=== PATIENT | female | born 1960 | race Caucasian/White ===

== ENCOUNTER 2017-01-28 20:50 | Emergency (ER) | payer OTHER ==
[~2017-01-28] VITALS: Ht 162.6 cm; Wt 56.8 kg
[2017-01-28 20:53] VITALS: BP 182/92; PULSE 87; RESP 18; O2SAT 96
--- NOTE | 2017-01-28 21:46 | ED.REPORT ---
HPI-General Illness Date of Service Jan 28, 2017 ED Provider: Sekou Ríos MD The pt is a 56 y/o female w/ a hx of IVDA and vasculitis coming into the ED via DOC officer seeking clearance for incarceration, due to recent hospital admission for left foot vasculitis. Patient reports ongoing left foot pain. She was released from [facility] this morning after spending 4-5 days being treated for vasculitis. Patient denies being treated for osteomyelitis or undergoing surgery but she did receive IV antibiotics.She is currently taking cephalexin, baby aspirin, and gabapentin. She reports no other health problems but is concerned with how she is going to take care of her injuries while she is in prison. The patient has been caring for her wounds herself at home, soaking her foot in a tub. The patient is to be transported to [facility], a [facility]. She has not had a fever or chills. Nursing Notes Stated Complaint: FIT FOR [facility] Chief Complaint: Extremity Trauma Nursing Notes Reviewed: Yes Allergies: Coded Allergies: No Known Allergies (Verified Allergy, Unknown, 01/28/17) No Active Prescriptions or Reported Meds General Time Seen by MD: 21:43 Chief Complaint Other (Seeking medical clearance ) Hx Obtained From: Patient Arrived By: Police Sudden in Onset?: No Onset Occurred: 5 days ago Symptom Duration: Since onset Recent Healthcare: Recent doctor visit, Recent hospitalization Similar Sx Previous: Yes Past Medical History Past Medical History Notes: Recent discharged from [facility] for left foot vasculitis, discharged on Keflex Past Medical History Hx of low back pain H/o vasculitis, left foot Reports: IV Drug use Past Surgical History Tubal ligation Smoking History Unknown if Ever Smoker Social History Drug Use: IV drugs, Meth Other Social History: Local resident Ambulatory Status Independent Review of Systems Full Review of Systems Constitutional: Denies: Chills, Fever Musculoskeletal: Reports: Extremity pain (L foot ), Denies: Extremity swelling Complete sys rev & neg: except as marked. Physical Exam Vital Signs Vital Signs Date Time Temp Pulse Resp B/P Pulse Ox O2 Delivery O2 Flow Rate FiO2 01/28/17 22:17 73 20 155/84 98 Room Air 01/28/17 20:53 36.3 87 18 182/92 96 Room Air Initial VS: Reviewed Head / Eyes: Atraumatic, Normocephalic, PERRL ENT: Mucous membranes moist, Conjunctiva normal, No scleral icterus Neck: Supple, Non-tender, Full range of motion Respiratory: Breath sounds normal, Clear to auscultation, No respiratory distress Cardiovascular: Regular rate & rhythm, Heart sounds normal, Intact distal pulses Neurologic: Alert, Oriented, Nonfocal Psychiatric: Mood/affect normal, Behavior normal, Normal thought content General/Constitutional: Awake, Alert Head / Eyes: Atraumatic, Normocephalic Neck: Atraumatic, Supple, Full range of motion Two superficial ulcers on L foot which are currently dressed Skin: Warm, Dry Multiple sores over most of her body Re-Eval/Medical Decision Med Decision/Clinical Course 56-year-old female brought to [facility] by the DOC collection team for medical clearance for transport back to [facility], a DOC facility in [place]. She was brought here for medical clearance because she has a large bandage on her foot and she has high blood pressure. She was initially hypertensive but repeat blood pressures after she calmed down were elevated but not dangerously so. She has a history of vasculitis and has some open ulcerations on her foot. She has been doing daily dressing changes with these. She is on Keflex and gabapentin. Her medical situation was discussed with the intake nurse at [facility] who agreed that she could be cared for there and accepted her in transfer. They will make arrangements for her medications, her dressing changes, and her personal hygiene. They will also contact [facility] where she was recently hospitalized for records. Source of Hx: Old records Time of Eval: 22:56 Patient Status: Condition resolved Re-Evaluation/Progress Note: Pt rechecked. Informed pt of plan for treatment. Pt understands and agrees with plan for treatment. F/U instructions and RTER warnings given. All questions addressed. Consultation : Note: Consulted [facility], discussed pt's case w/ medical device assembler, who accepts the pt. Counseled Regarding: Diagnosis, Need for follow-up, When/why to return to ED Discharge & Departure Primary Impression: Medical clearance for incarceration Additional Impression: Skin ulcer of left foot Non-pressure ulcer stage: with fat layer exposed Qualified Code: L97.522 - Non-pressure chronic ulcer of other part of left foot with fat layer exposed Disposition: Home Discharge Condition All VS Reviewed: Yes Condition: Stable Additional Instructions: She is fit for incarceration per our discussion. Daily wet-to-dry dressing changes, contact [facility] for their recommendations for dressing changes and follow-up. Keflex 500 mg 4 times a day and gabapentin 100 mg 3 times a day are her outpatient medications, and she does not have these with her. She will also likely withdraw from opiates. Referrals: Be Torres MD (PCP) Scribe Attestation Portions of this note were transcribed by Anmol Arizmendi and Ryanne Avina. I, Dr. Ríos personally performed the history, physical exam and medical decision- making; I reviewed and confirmed the accuracy of the information in the transcribed note. Signed by: Anmol Arizmenid and Ryanne Avina, Scribes, 01/28/17 and 2334. copies to: Be Torres MD, Howard L MD Jan 28, 2017 21:46 Anmol Arizmendi Jan 28, 2017 21:56 Ryanne Avina Jan 28, 2017 23:08
[2017-01-28 22:17] VITALS: BP 155/84; PULSE 73; RESP 20; O2SAT 98
== END 2017-01-28 22:18 | disposition home or self-care (01) ==
LOC: SED 20:50
DX: L97.522 Non-pressure chronic ulcer of other part of left foot with fat layer exposed (principal); Z02.89 Encounter for other administrative examinations

== ENCOUNTER 2017-04-12 11:54 | Emergency (ER) | payer OTHER ==
[~2017-04-12] VITALS: Ht 162.6 cm; Wt 56.8 kg
[2017-04-12 12:02] VITALS: BP 147/89; PULSE 90; RESP 18; O2SAT 99
--- NOTE | 2017-04-12 12:55 | ED.REPORT ---
HPI-Extremity Problem Lower Date of Service Apr 12, 2017 ED Provider: Oumar Lopez MD Nursing Notes Stated Complaint: LEFT FOOT Chief Complaint: Extremity Trauma Nursing Notes Reviewed: Yes Allergies: Coded Allergies: No Known Allergies (Verified Allergy, Unknown, 04/12/17) No Active Prescriptions or Reported Meds General Time Seen by MD: 12:54 Chief Complaint Foot injury left Hx Obtained From: Patient Arrived By: Walk-in Onset Occurred: More than a week ago... Symptom Duration: Since onset Location: : Foot left Quality: Painful Severity: Current: Moderate Severity: Maximum: Moderate Recent Healthcare: No recent hospitalization, Recent doctor visit Similar Sx Previous: Yes Past Medical History Past Medical History Hx of low back pain H/o vasculitis, left foot Reports: IV Drug use Past Surgical History Tubal ligation Family History Noncontributory Smoking History Unknown if Ever Smoker Social History Drug Use: IV drugs, Meth Other Social History: Local resident Ambulatory Status Independent Review of Systems Musculoskeletal: Reports: Extremity pain, Extremity swelling Complete sys rev & neg: except as marked. Physical Exam Initial Vital Signs Vital Signs (First) Date Time Temp Pulse Resp B/P Pulse Ox O2 Delivery O2 Flow Rate FiO2 04/12/17 12:02 37.0 90 18 147/89 99 Room Air Initial VS: Reviewed Re-Eval/Medical Decision Source of Hx: Old records Counseled Regarding: Diagnosis, Need for follow-up, When/why to return to ED Discharge & Departure Departure Notes PT LEFT WITHOUT BEING SEEN Impression: Primary Impression: Left foot pain Disposition: AGAINST MEDICAL ADVICE (LWOBS) Discharge Condition All VS Reviewed: Yes Condition: Stable Referrals: Be Torres MD (PCP) Scribe Attestation Portions of this note were transcribed by Jumana Batista. I, Dr. Lopez personally performed the history, physical exam and medical decision-making; I reviewed and confirmed the accuracy of the information in the transcribed note. Signed by: Deborah Menjivar, 04/12/2017 at 1400. copies to: Be Torres MD, Beck O MD Apr 12, 2017 12:54 Jumana Batista Apr 12, 2017 13:16
== END 2017-04-12 13:26 | disposition left against medical advice (07) ==
LOC: SED 11:54
DX: M79.672 Pain in left foot (principal); Z53.21 Procedure and treatment not carried out due to patient leaving prior to being seen by health care provider

== ENCOUNTER 2017-04-13 14:27 | Emergency (ER) | payer OTHER ==
[~2017-04-13] VITALS: Ht 162.6 cm; Wt 56.0 kg
[2017-04-13 14:36] VITALS: BP 137/89; PULSE 90; RESP 18; O2SAT 98
--- NOTE | 2017-04-13 15:05 | ED.REPORT ---
HPI-Extremity Problem Lower Date of Service Apr 13, 2017 ED Provider: History of Present Illness: sores are leaking fluid on left lower leg, al is primary care [facility] in [place]. taking it easy yesterday. released from hospital [facility] in [place] for leg about 1 month ago. appointment with al is 04/18/2017 at 9 am Nursing Notes Stated Complaint: LEFT FOOT LEAKING FLUID Chief Complaint: General Complaint Nursing Notes Reviewed: Yes Allergies: Coded Allergies: No Known Allergies (Verified Allergy, Unknown, 04/12/17) No Active Prescriptions or Reported Meds General Time Seen by MD: 15:04 Chief Complaint Leg injury left Hx Obtained From: Patient Onset Occurred: More than a week ago... 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 04/13/2017 Alcohol Use: Denies alcohol use Drug Use: IV drugs, Meth, Other (heroin) Other Social History: Local resident Occupation lives with brother, no work or school Ambulatory Status Independent Review of Systems Basic Review of Systems Eyes: Vision NL, No discharge : No dysuria, No frequency Psychiatric: Normal thought content Physical Exam Initial Vital Signs Vital Signs (First) Date Time Temp Pulse Resp B/P Pulse Ox O2 Delivery O2 Flow Rate FiO2 04/13/17 14:36 36.6 90 18 137/89 98 Room Air Initial VS: Reviewed, Vital signs normal General/Constitutional: Well-developed, Well-nourished Back: No CVA tenderness Psychiatric: Mood/affect normal, Behavior normal, Normal thought content left lower leg with 1 small sore on leg and 1 on foot. No active drainage at this time. Left foot has restriction in movement. US is negative for any clot formation . Blood flow to leg intact. General/Constitutional: Awake, Alert, No acute distress, Well appearing, Well developed, Well hydrated Interpretation & Diagnostics Interpretation & Diagnostics: verbal report no dvt, arterial blood flow intact Lab Results Interpretation Result Diagram: 04/13/17 1606 04/13/17 1606 Test 7/12/17 16:06 White Blood Count 6.2th/mm3 (3.8-10.1) Red Blood Count 4.38mil/mm3 (3.90-5.20) Hemoglobin 12.6g/dL (12.0-15.6) Hematocrit 38.5% (35.0-46.0) Mean Corpuscular Volume 87.9fL (81-100) Mean Corpuscular Hemoglobin 28.8pg (27.0-35.0) Mean Corpuscular Hemoglobin Concent 32.7% (32.0-37.0) Red Cell Distribution Width 15.1% (12.3-15.4) Platelet Count 215bil/L (150-400) Neutrophils (%) (Auto) 43.6% (40-74) Lymphocytes (%) (Auto) 42.3% (14-46) Monocytes (%) (Auto) 9.6% (4-12) Eosinophils (%) (Auto) 3.5% (0-5) Basophils (%) (Auto) 0.8% (0-3) Sodium Level 135mEq/L (134-144) Potassium Level 4.1mEq/L (3.5-5.2) Chloride Level 100mEq/L (97-108) Carbon Dioxide Level 22mmol/L (18-29) Blood Urea Nitrogen 13mg/dL (6-24) Creatinine 0.51mg/dL (0.57-1.00) Estimat Glomerular Filtration Rate 179mL/min (>59) Glucose Level 101mg/dL (60-99) Calcium Level 9.6mg/dL (8.5-10.1) Total Bilirubin 0.4mg/dL (0.0-1.2) Aspartate Amino Transf (AST/SGOT) 154U/L (0-50) Alanine Aminotransferase (ALT/SGPT) 96U/L (0-32) Alkaline Phosphatase 75U/L (25-150) Pro-B-Type Natriuretic Peptide 308.3pg/mL (0-287) Total Protein 7.8g/dL (6.4-8.4) Albumin 3.6g/dL (3.4-5.0) X-Ray Interpretation Xray Interpretation: PROCEDURE: X-RAY LEFT FOOT COMPLETE, MINIMUM THREE VIEWS ([id number]) INDICATIONS: pain swelling TECHNIQUE: 3 views of the foot were acquired. COMPARISON: None. FINDINGS: Bones: No fractures or dislocations. No suspicious bony lesions. Soft tissues: No tibiotalar joint effusion. Achilles tendon appears normal. IMPRESSION: No acute fracture. No osseous lesion. If symptoms and/or clinical suspicion for pathology persist, further assessment with repeat, or advanced imaging (e.g., CT, MRI, or bone scan) may be helpful for further assessment. Dictated by: Amber Padilla M.D. on 04/13/2017 at 15:35 Approved by: Amber Padilla M.D. on 04/13/2017 at 15:36 Re-Eval/Medical Decision Med Decision/Clinical Course 56 year old female presents for evualation of fluid leaking out of her left leg. Patient states the leg was more swollen yesterday. X-ray of the foot is normal. Verbal report is normal arterial blood flow and no sign of any clot. Labs are normal. No sign of any compartment syndrome or blood clot. Instructed patient on need to quit smoking and importance of wearing support hose. Discharge & Departure Impression: Primary Impression: Vascular insufficiency of extremity Disposition: Home Patient Instructions: Peripheral Vascular Disease (ED) Additional Instructions: The ultrasound does not show any sign of a clot. It also shows good blood flow to your foot. Need to start moving the foot! Wear the support hose daily. Need to consider stopping smoking. Use eucerin on your skin. The x-ray of the foot looks good. Work on your balance by balancing while you brush your teeth at the bathroom sink. Keep the appointment with Dr. Torres on Tuesday am as scheduled. I will fax over all the test results to him.If the leg starts swelling while you are wearing the support hose, elevate the leg and consider a new pair of support hose. Referrals: Be Torres MD (PCP) EDSupervising Provider for APC: Rupert Luis MD copies to: Be Torres MD, Sue ARNP Apr 13, 2017 15:05
--- NOTE | 2017-04-13 15:38 | DRSVH ---
PROCEDURE: X-RAY LEFT FOOT COMPLETE, MINIMUM THREE VIEWS ([id number]) INDICATIONS: pain swelling TECHNIQUE: 3 views of the foot were acquired. COMPARISON: None. FINDINGS: Bones: No fractures or dislocations. No suspicious bony lesions. Soft tissues: No tibiotalar joint effusion. Achilles tendon appears normal. IMPRESSION: No acute fracture. No osseous lesion. If symptoms and/or clinical suspicion for patholog y persist, further assessment with repeat, or advanced imaging (e.g., CT, MRI, or bone scan) may be h elpful for further assessment. Dictated by: Amber Padilla M.D. on 04/13/2017 at 15:35 Approved by: Amber Padilla M.D. on 04/13/2017 at 15:36
[2017-04-13 16:23] LABS: BASOPHILS % (AUTO) 0.8 % (0-3); EOSINOPHILS % (AUTO) 3.5 % (0-5); MONOCYTES % (AUTO) 9.6 % (4-12); Mean Corpuscular Hemoglobin 28.8 pg (27.0-35.0); Mean Corpuscular Volume 87.9 fL (81-100); NEUTROPHILS % (AUTO) 43.6 % (40-74); Platelet Count 215 bil/L (150-400)
[2017-04-13 18:28] VITALS: BP 161/95; PULSE 83; RESP 18; O2SAT 99
--- NOTE | 2017-04-14 09:39 | DRSVH ---
PROCEDURE: US DUPLEX DOPPLER UNILATERAL LEG ARTERIES, LEFT INDICATIONS: foot was ospina TECHNIQUE: Color and pulse Doppler interrogation was performed of the left lower extremity arterial system, with image documentation. COMPARISON: [facility], CR, XR FOOT 3VW LT, 04/13/2017, 15:15. FINDINGS: Vascular Ultrasound Procedure Report Findings(Artery of Lower Extremity)(Left) Common Femoral Artery(Distal) Velocity: 121.80 cm/s Profunda Femoris Artery(Proximal) Velocity: 57.80 cm/s Superficial Femoral Artery(Proximal) Velocity: 132.80 cm/s Superficial Femoral Artery(Mid-longitudinal) Velocity: 150 cm/s Superficial Femoral Artery(Distal) Velocity: 56.20 cm/s Popliteal Artery(Mid-longitudinal) Velocity: 83.30 cm/s Posterior Tibial Artery(Distal) Velocity: 77.60 cm/s Dorsalis Pedis Artery(Distal) Velocity: 64 cm/s Normal-appearing triphasic and biphasic waveforms are seen. Greyscale findings: Minimal plaque is seen. IMPRESSION: No hemodynamically significant stenosis can be seen. Note: Concordant preliminary findings given by the bench patternmaker metal upon the completion of the examination to Dr. Rondon at 1715 hrs. on 04/13/17. Dictated by: Mauricio Corey M.D. on 04/14/2017 at 8:36 Approved by: Mauricio Corey M.D. on 04/14/2017 at 8:37
== END 2017-04-13 18:29 | disposition home or self-care (01) ==
LOC: SED 14:27
DX: I99.8 Other disorder of circulatory system (principal); F17.200 Nicotine dependence, unspecified, uncomplicated; Z86.79 Personal history of other diseases of the circulatory system